=== PATIENT | female | born 1965 ===

== ENCOUNTER → 2017-01-15 | Outpatient (CLI) | payer OTHER ==
[~2017-01-15] MED LIST: BENIFIBER PO; BIOTIN5000 MCG PO; CALCIUM500 M1; MELATONIN5 M1 PO; MULTIPLE VITAM1 EAC1 PO
--- NOTE | ~2017-01-15 | CR97 ---
[facility] A Service of [facility] RADIOLOGY TEXT RESULTS PATIENT: HOWIE BROWN LOCATION: [facility] : 69 UNIT #: [id number] AGE: [address]: Christofer Todd III, MD SEX: F ORDER DR: [id number] [address] [address] [id number] O MR#: [id number] Acc #: [id number] NAME: HOWIE BORWN : 1965 SEX: F STUDY DATE/TIME: 01/15/2017 9:44 UNIT: [facility] ROOM: STUDY DESCRIPTION: CR Esophagram Attending Physician: Christofer Todd III, M.D. Referring Physician: Christofer Todd III, M.D. Ordering Physician: Christofer Todd III, M.D. Primary Care Physician: Neeraj Centeno M.D. MEDICAL IMAGING REPORT This report is preliminary unless electronic signature is present EXAM Esophagram, 01/15/2017 INDICATIONS 51-year-old female presenting for preop evaluation for Lap-Band placement. Possible paraesophageal hernia repair. Shortness of air with activity. Pneumonia 5 years ago. Symptoms began today. TECHNIQUE Spot fluoroscopic views of the esophagus were obtained in various projections after the patient ingested gas crystals and thick and thin liquid barium on 01/15/2017. COMPARISON We have no comparisons. FINDINGS Notes indicate 1 minute of fluoroscopy time used in the case. 39 images from the procedure were saved to the [employer] system. The esophagus demonstrates an unremarkable primary stripping wave. No significant secondary or tertiary contractions identified. No focal esophageal mass, stricture or mucosal abnormality. No hiatal hernia. IMPRESSION 1. Negative esophagram. 2. Notes indicate 1 minute of fluoroscopy time used in the case. 39 images from the procedure were saved to the [employer] PACS. Dictated by... Ferny Gautam M.D. [facility] A Service of [facility] RADIOLOGY TEXT RESULTS PATIENT: HOWIE BROWN [id number] : [birth year] UNIT #: [id number] AGE: [address]: Christofer Todd III, MD SEX: F ORDER DR: THIS IS AN ELECTRONICALLY VERIFIED REPORT Ferny Gautam M.D. at 01/15/2017 5:18 PM Sue TD: 01/15/2017 14:00 JOB #: [id number] MEDICAL IMAGING REPORT Page 1 of 1 COPY
--- NOTE | ~2017-01-15 | CR63 ---
[facility] A Service of [facility] RADIOLOGY TEXT RESULTS PATIENT: HOWIE BROWN LOCATION: [facility] : 69 UNIT #: [id number] AGE: [address]: Christofer Todd III, MD SEX: F ORDER DR: [id number] [place], [place] [address] [id number] O MR#: [id number] Acc #: [id number] NAME: HOWIE BROWN : 1965 SEX: F STUDY DATE/TIME: 01/15/2017 8:37 UNIT: [facility] ROOM: STUDY DESCRIPTION: CR Chest 2 View Attending Physician: Christofer Todd III, M.D. Referring Physician: Christofer Todd III, M.D. Ordering Physician: Christofer Todd III, M.D. Primary Care Physician: Neeraj Centeno M.D. MEDICAL IMAGING REPORT This report is preliminary unless electronic signature is present EXAM Two-view chest 01/15/2017 INDICATIONS 51-year-old female for preop evaluation for Lap-Band procedure. Short of breath with activity. Symptoms began today. History of pneumonia 5 years ago. TECHNIQUE 2 views of the chest COMPARISON No comparisons FINDINGS There is motion degradation. Cardiac silhouette is within normal limits. The vascularity is normal. There is old healed granulomatous disease. There is some minimal atelectasis or scarring in the lower lung zone on the left. IMPRESSION Calcified granulomatous changes; otherwise negative two-view chest. We have no comparisons. Dictated by... Ferny Gautam M.D. THIS IS AN ELECTRONICALLY VERIFIED REPORT Ferny Gautam M.D. at 01/15/2017 5:18 PM Sue TD: 01/15/2017 13:27 [facility] A Service of [facility] RADIOLOGY TEXT RESULTS PATIENT: HOWIE BROWN LOCATION: [facility] #: [id number] : 69 UNIT #: [id number] AGE: [address]: Christofer Todd III, MD SEX: F ORDER DR: CHIP #: [id number] MEDICAL IMAGING REPORT Page 1 of 1 COPY
--- NOTE | ~2017-01-15 | EKG ---
PATIENT: HOWIE BROWN UNIT #: [id number] Ventricular Rate: 77 BPM Atrial Rate: 77 BPM P-R Interval: 160 ms QRS Duration: 76 ms Q-T Interval: 390 ms QTC Calculation(Bezet): 441 ms P Flanagan: 37 degrees Calculated R Flanagan: 7 degrees Calculated T Flanagan: 33 degrees Diagnosis Line: Normal sinus rhythm Diagnosis Line: Minimal voltage criteria for LVH, may be normal Diagnosis Line: variant Diagnosis Line: Borderline ECG Diagnosis Line: Diagnosis Line: Confirmed by DANE BOWERS MD ([id number]) on 01/15/2017 Diagnosis Line: 5:02:00 PM INTERPRETING MD: ELISSA HERRING
[2017-01-15 10:05] LABS: HEMATOCRIT 41.9 % (35.0-45.0); MEAN CELL VOLUME 85.9 FL (83-96); MEAN CORPUSCULAR HEMOGLOBIN 28.8 PG (28-34); MEAN CORPUSCULAR HGB CONC 33.5 g/dL (30-36); RED BLOOD COUNT 4.88 X10e (3.90-5.30); RED CELL DISTRIBUTION WIDTH 15.7 % (11.0-15.5); WHITE BLOOD COUNT 9.6 X10e3 (4.0-10.5)
[2017-01-15 11:14] LABS: ALBUMIN SERUM 4.2 g/dL (3.5-5.0); BILIRUBIN,TOTAL 0.5 mg/dL (0.2-2.0); CALCIUM SERUM 9.3 mg/dL (8.4-10.2); CREATININE SERUM 0.7 mg/dL (0.6-1.4); GLOM FILT RATE Estimated 101.7 mL/min (>60); POTASSIUM 4.3 mmol/L (3.5-5.1); PROTEIN TOTAL SERUM 7.3 g/dL (6.0-8.3)
== END | disposition home or self-care (01) ==
LOC: CRAD 08:24 → CAMB 10:00
PROVIDERS: Surgery
DX: Z01.818 Encounter for other preprocedural examination (principal)
CPT/HCPCS: 36415; 71020; 74220; 80053; 80061; 84443; 85027; 93005

== ENCOUNTER → 2017-01-27 | Day surgery (SDC) | payer OTHER ==
--- NOTE | ~2017-01-27 | CR7 ---
[facility] A Service of [facility] RADIOLOGY TEXT RESULTS PATIENT: HOWIE BROWN LOCATION: [facility] : 69 UNIT #: [id number] AGE: [address]: Christofer Todd III, MD SEX: F ORDER DR: [id number] [facility] [address] [place], [place] [address] [id number] O MR#: [id number] Acc #: [id number] NAME: HOWIE BROWN : 1965 SEX: F STUDY DATE/TIME: 01/27/2017 UNIT: [facility] ROOM: STUDY DESCRIPTION: CR Abdomen Single AP View Attending Physician: Christofer Todd III, M.D. Ordering Physician: Christofer Todd III, M.D. Primary Care Physician: Neeraj Centeno M.D. MEDICAL IMAGING REPORT This report is preliminary unless electronic signature is present EXAM Abdomen one-view 01/27/2017 12:59 hours HISTORY Morbid obesity, postop lap-band placement today. Abdominal pain today. COMPARISON Preop esophagram 01/15/2017 FINDINGS Single supine view of the abdomen excludes the right flank and the lower pelvis. There is a lap-band present overlying the left T11 costovertebral junction oriented at 57 degrees from vertical. Radiopaque tubing courses inferiorly to a port overlying the left sacral ala. Bowel gas pattern is unremarkable. There is linear atelectasis at both lung bases. IMPRESSION 1. There is a new lap-band present overlying the left T11 costovertebral junction oriented at 57 degrees from vertical. Radiopaque tubing courses inferiorly to a port overlying the left sacral ala. 2. Linear atelectasis at both lung bases. Dictated by... Giselle Reid M.D. THIS IS AN ELECTRONICALLY VERIFIED REPORT Giselle Reid M.D. at 01/28/2017 9:03 AM SMM/theodore TD: 01/27/2017 13:49 JOB #: [id number] MEDICAL IMAGING REPORT [facility] A Service of [facility] RADIOLOGY TEXT RESULTS PATIENT: HOWIE BROWN LOCATION: [facility] #: [id number] : [birth year] UNIT #: [id number] AGE: [address]: Christofer Todd III, MD SEX: F ORDER DR: Page 1 of 1 COPY
--- NOTE | ~2017-01-27 | OR ---
Unit #: [id number] #: [id number] Patient: HOWIE BROWN [id number] [place], [place] [address] [id number] O MR#: [id number] NAME: HOWIE BROWN ROOM: Date of Procedure: 01/27/2017 Admission Date: 01/27/2017 Surgeon: Christofer Todd III, M.D. : 1965 Attending Physician: Christofer Todd III, M.D. Primary Care Physician: Neeraj Centeno M.D. OPERATIVE REPORT PREOPERATIVE DIAGNOSIS Chronic morbid obesity. POSTOPERATIVE DIAGNOSES 1. Chronic morbid obesity. 2. Anterior paraesophageal hernia. [employer] MACHINE SERVICER REPAIRER Lion Solomon M.D. SPECIMENS None. COMPLICATIONS None apparent. ESTIMATED BLOOD LOSS Minimal. ANESTHESIA General endotracheal tube anesthesia. INDICATIONS FOR PROCEDURE This is a 51-year-old lady, who has chronic morbid obesity with a BMI of 42, who has been through the bariatric program at [facility]. She understands risks and benefits of the procedure. DESCRIPTION OF PROCEDURE After consent was obtained, including the risks and benefits of slippage, erosion, port dysfunction, and possible failure of weight loss due to noncompliance, the patient was taken to the operating room and placed in the supine position. General anesthetic was administered and the abdomen was prepped and draped in standard surgical fashion. I began by making a 2 cm incision just above and to the left of the umbilicus. I used a Visiport to enter the peritoneal cavity without any difficulty. C02 pneumoperitoneum was then established. Next, I placed a 5 mm port in the right upper quadrant, a 5 mm Emmanuel liver retractor in the subxiphoid region to provide exposure of the gastroesophageal junction. Next, a 10 mm port was placed in the left upper quadrant and a 5 mm port was placed in the left lateral subcostal region. I began by performing an examination of the GE junction to evaluate for a hiatal Unit #: [id number] #: [id number] Patient: HOWIE BROWN hernia. We then scored the peritoneal attachments overlying the angle of His. I then opened up the clear space in the gastrohepatic ligament, and then using 2 blunt graspers, I identified the small fat pad crossing over the right crura. I swept the fat anterior to the crura off the crura and using the pars flaccida, I created a retrogastric tunnel where the blunt grasper exited at the angle of His. Once I had made this tunnel safely, I then inserted an Allergan AP band into the abdominal cavity. This adjustable gastric band was then place around the upper part of the stomach and fastened and buckled anteriorly. We then tacked the lateral fundus over the band to the proximal pouch with 2 interrupted 0 Ethibond sutures. I then used a third stitch to imbricate the excess anterior stomach by going from the lesser curvature up towards where the last stitch was placed. We then had excellent hemostasis. I removed the Emmanuel liver retractor. We then removed the port tubing through the initial port incision. The rest of the ports were removed, and the pneumoperitoneum was released. I then left a small tail on the tubing. We then attached the port to the excess band tubing. We placed a piece of Prolene mesh along the back side of the port and used a Prolene stitch to anchor this mesh in place. We then trimmed the excess mesh so that just a small footprint of mesh was in place behind the port. I then inserted the tubing back into the abdominal cavity, and we placed the port into a small pocket that was made just inferior to where our initial port incision was made. The mesh was in direct contact with the fascia, and this will scar in place to hold the port in place. We then injected all the port sites with 0.25% plain Marcaine, and I reapproximated the skin edges with interrupted 4-0 Vicryl subcuticular sutures. Steri-strips were then applied. The patient tolerated the procedure without any problems and returned to the recovery room in stable condition. ADDENDUM After exposure of the GE junction, the patient was noted to have a small to medium size anterior paraesophageal hernia. I scored the phrenoesophageal ligament, reduced the hernia defect and after identifying both the right and left crura, I then reapproximated the defect with an interrupted 0 Ethibond [id number] suture. I then proceeded with the case as listed above. Dictated by... Christofer Todd III, M.D. VCL/alex TD: 01/28/2017 17:35 JOB #: [id number] CC: Neeraj Centeno M.D. Unit #: [id number] #: [id number] Patient: HOWIE BROWN OPERATIVE REPORT Page 1 of 1 X Christofer Todd III, MD PROCEDURE OPERATIVE NOTE
== END | disposition home or self-care (01) ==
LOC: CSUR 09:42
DX: E66.01 Morbid (severe) obesity due to excess calories (principal); K44.9 Diaphragmatic hernia without obstruction or gangrene; M19.90 Unspecified osteoarthritis, unspecified site; Z68.41 Body mass index [BMI] 40.0-44.9, adult; Z88.5 Allergy status to narcotic agent; Z79.899 Other long term (current) drug therapy; Z90.710 Acquired absence of both cervix and uterus
CPT/HCPCS: 74000; 84703; C1781; J0330; J0690; J1100; J1650; J1885; J2250; J2405; J2710; J3010